=== PATIENT | female | born 1970 | race Caucasian/White ===

== ENCOUNTER 2020-09-27 10:53 | Emergency (ER) | payer OTHER ==
[2020-09-27 11:09] VITALS: TEMP 98; BMI 29.2
[2020-09-27 15:20] LABS: BASO % 0.4 % (0-2.0); EOS % 0.3 % (0-4.5); HEMATOCRIT 40.8 % (32.4-45.2); HEMOGLOBIN 13.5 GM/dL (10.7-15.3); MEAN CELL VOLUME 75.9 fl (80-96); MEAN PLT VOLUME 7.4 fl (7.5-11.1); MONO % 6.2 % (3.8-10.2); NEUT % 60.1 % (42.8-82.8); PLATELET COUNT 266 10^3/uL (134-434); RBC 5.38 M/mm3 (3.60-5.2); RDW 15.7 % (11.6-15.6); WHITE BLOOD COUNT 8.1 K/mm3 (4.0-10.0)
[2020-09-27 15:38] VITALS: BP 146/86; PULSE 86
[2020-09-27 15:48] LABS: CALCIUM 9.2 mg/dL (8.5-10.1)
[2020-09-27 15:49] LABS: ALBUMIN 3.9 g/dl (3.4-5.0); BLOOD UREA NITROGEN 17.6 mg/dL (7-18)
[2020-09-27 15:52] LABS: CREATININE 0.8 mg/dL (0.55-1.3)
[2020-09-27 15:53] LABS: BILIRUBIN,TOTAL 0.6 mg/dL (0.2-1); TOT PROT 8.2 g/dl (6.4-8.2)
== END 2020-09-27 16:32 | disposition home or self-care (01) ==
LOC: JER 10:53
DX: R20.2 Paresthesia of skin (principal)
CPT/HCPCS: 36415; 80053; 85025; 93005; 93010; 99284-25